=== PATIENT | female | born 1935 | race Two or more races ===

== ENCOUNTER 2017-07-15 09:06 | Emergency (ER) | payer OTHER ==
[~2017-07-15] VITALS: Ht 157.5 cm; Wt 63.5 kg
[~2017-07-15 09:06] MED LIST: CATAFLAM50 MG PO; KETO10TA2 PO; MEDROL4 MG PO; NEURONTIN300 MG PO; ORPH100T PO
[2017-07-15] MEDS ORDERED: LOSARTAN POTASS25 MG (09:28)
[2017-07-15] MEDS ORDERED: NORVASC5 MG (09:28)
[2017-07-15] MEDS ORDERED: CETIRIZINE HCL10 MG (09:48)
[2017-07-15] MEDS ORDERED: LEVOCETIRIZINE D5 MG (09:48)
[2017-07-15] MEDS ORDERED: FAMOTIDINE20 MG (09:49)
[2017-07-15] MEDS ORDERED: LANSOPRAZOLE30 MG (09:49)
[2017-07-15] MEDS ORDERED: ATORVASTATIN CA20 MG (09:49)
[2017-07-15] MEDS ORDERED: NITROGLYCERIN0.4 MG (09:50)
[2017-07-15] MEDS ORDERED: HYDROCHLOROTH12.5 MG (09:50)
== END 2017-07-15 12:45 | disposition home or self-care (01) ==
LOC: ER 09:06
DX: G44.209 Tension-type headache, unspecified, not intractable (principal); G50.0 Trigeminal neuralgia

== ENCOUNTER 2019-07-15 14:05 | Emergency (ER) | payer OTHER ==
[~2019-07-15] VITALS: Ht 157.5 cm; Wt 59.0 kg
[~2019-07-15 14:05] MED LIST changes: +ATORVASTATIN CA20 MG; +CETIRIZINE HCL10 MG; +FAMOTIDINE20 MG; +HYDROCHLOROTH12.5 MG; +LANSOPRAZOLE30 MG; +LEVOCETIRIZINE D5 MG; +LOSARTAN POTASS25 MG; +NITROGLYCERIN0.4 MG; +NORVASC5 MG
[2019-07-15] MEDS ORDERED: PLAVIX75 MG (14:19)
[2019-07-15] MEDS ORDERED: NITROSTAT0.4 MG (14:19)
[2019-07-15] MEDS ORDERED: HYDRODIURIL12.5 MG (14:20)
[2019-07-15] MEDS ORDERED: COZAAR100 MG (14:20)
[2019-07-15] MEDS ORDERED: PROTONIX40 M1 (14:20)
[2019-07-15] MEDS ORDERED: SYNTHROID75 MCG (14:21)
[2019-07-15] MEDS ORDERED: NORVASC5 MG (14:21)
== END 2019-07-15 16:48 | disposition home or self-care (01) ==
LOC: ER 14:05
DX: R68.84 Jaw pain (principal)

== ENCOUNTER 2019-11-03 06:57 | Emergency (ER) | payer OTHER ==
[~2019-11-03] VITALS: Ht 157.5 cm; Wt 59.0 kg
[~2019-11-03 06:57] MED LIST changes: +COZAAR100 MG; +HYDRODIURIL12.5 MG; +NITROSTAT0.4 MG; +PLAVIX75 MG; +PROTONIX40 M1; +SYNTHROID75 MCG
[2019-11-03] MEDS ORDERED: LIPITOR20 MG (07:10)
[2019-11-03] MEDS ORDERED: MONTELUKAST SODI4 M1 (07:10)
== END 2019-11-03 14:53 | disposition home or self-care (01) ==
LOC: ER 06:57
DX: R10.817 Generalized abdominal tenderness (principal)

== ENCOUNTER 2019-11-07 07:09 | Emergency (ER) | payer OTHER ==
[~2019-11-07] VITALS: Ht 157.5 cm; Wt 59.0 kg
[~2019-11-07 07:09] MED LIST changes: +LIPITOR20 MG; +MONTELUKAST SODI4 M1
[2019-11-07] MEDS ORDERED: HORIZANT300 MG (07:17)
== END 2019-11-07 13:31 | disposition home or self-care (01) ==
LOC: ER 07:09
DX: G89.18 Other acute postprocedural pain (principal); R10.32 Left lower quadrant pain; N28.1 Cyst of kidney, acquired; S91.202A Unspecified open wound of left great toe with damage to nail, initial encounter; Z03.818 Encounter for observation for suspected exposure to other biological agents ruled out; W22.8XXA Striking against or struck by other objects, initial encounter; Y93.89 Activity, other specified; Y92.89 Other specified places as the place of occurrence of the external cause; Y99.8 Other external cause status

== ENCOUNTER 2019-12-30 09:13 | Emergency (ER) | payer OTHER ==
[~2019-12-30] VITALS: Ht 157.5 cm; Wt 54.4 kg
[~2019-12-30 09:13] MED LIST changes: +HORIZANT300 MG
== END 2019-12-30 13:47 | disposition home or self-care (01) ==
LOC: ER 09:13
DX: R10.31 Right lower quadrant pain (principal); Z03.818 Encounter for observation for suspected exposure to other biological agents ruled out

== ENCOUNTER 2020-01-04 06:47 | Emergency (ER) | payer OTHER ==
[~2020-01-04] VITALS: Ht 152.4 cm; Wt 54.4 kg
[2020-01-04] MEDS ORDERED: PROTONIX40 MG (06:55)
[2020-01-04] MEDS ORDERED: COZAAR50 MG (06:55)
[2020-01-04] MEDS ORDERED: LIPITOR40 M1 (06:55)
[2020-01-04] MEDS ORDERED: CARAFATE1 GM/10 ML PO (12:42)
[2020-01-04] MEDS ORDERED: PROTONIX40 MG PO (12:42)
== END 2020-01-04 12:50 | disposition home or self-care (01) ==
LOC: ER 06:47
DX: R10.13 Epigastric pain (principal); Z03.818 Encounter for observation for suspected exposure to other biological agents ruled out

== ENCOUNTER 2022-09-29 13:35 | Emergency (ER) | payer OTHER ==
[~2022-09-29] VITALS: Ht 160 cm; Wt 53.5 kg
[~2022-09-29 13:35] MED LIST changes: +CARAFATE1 GM/10 ML PO; +COZAAR50 MG; +LIPITOR40 M1; +PROTONIX40 MG; +PROTONIX40 MG PO
== END 2022-09-29 19:06 | disposition home or self-care (01) ==
LOC: ER 13:35
DX: M54.50 Low back pain, unspecified (principal); Z88.0 Allergy status to penicillin; E11.9 Type 2 diabetes mellitus without complications
CPT/HCPCS: 36415; 74176; 96372; 99284; J1885

== ENCOUNTER 2022-10-21 08:28 | Emergency (ER) | payer OTHER ==
[~2022-10-21] VITALS: Ht 157.5 cm; Wt 77.1 kg
[2022-10-21] MEDS ORDERED: DOLOGESIC 500-1 EACH PO (11:01)
[2022-10-21] MEDS ORDERED: ANUSOL-HC30 G2 TOP (11:01)
== END 2022-10-21 11:17 | disposition home or self-care (01) ==
LOC: ER 08:28
PROVIDERS: General Practice
DX: K64.9 Unspecified hemorrhoids (principal); K62.89 Other specified diseases of anus and rectum; I10 Essential (primary) hypertension; E11.9 Type 2 diabetes mellitus without complications; Z88.0 Allergy status to penicillin
CPT/HCPCS: 36415; 96372; 99282; J1885

== ENCOUNTER 2023-11-02 10:32 | Emergency (ER) | payer OTHER ==
[~2023-11-02] VITALS: Ht 157.5 cm; Wt 55.8 kg
[~2023-11-02 10:32] MED LIST changes: +ANUSOL-HC30 G2 TOP; +DOLOGESIC 500-1 EACH PO
[2023-11-02] MEDS ORDERED: DEXAMETHASONE SODIUM PHOSPHATE 4 MG/ML VIAL IV STA (11:17)
[2023-11-02] MEDS ORDERED: HYDROCORTISONE ACETATE 25 MG/SUPP.RECT SUPP.RECT RECTAL STA ×2 (11:17→11:20)
[2023-11-02] MEDS ORDERED: DEXAMETHASONE SODIUM PHOSPHATE 4 MG/ML VIAL ONE (11:24)
[2023-11-02 11:44] LABS: HEMATOCRIT 33.9 % (36.0-45.00); HEMOGLOBIN 11.4 g/dL (12.0-15.00); MEAN CELL VOLUME 88.6 fL (80.00-100.00); MEAN CORPUSCULAR HEMOGLOBIN 29.9 pg (27.00-32.0); MEAN CORPUSCULAR HGB CONC 33.8 g/dl (32.0-36.0); PLATELET COUNT 273 K/uL (150-450); RED BLOOD COUNT 3.82 M/uL (4.00-6.00); RED CELL DISTRIBUTION WIDTH 14.9 % (11.5-14.5)
[2023-11-02 13:48] LABS: CALCIUM 9.8 mg/dL (8.5-10.1); CREATININE SERUM 1.09 mg/dL (0.55-1.02); GFR 47.59; POTASSIUM 4.38 mEq/L (3.5-5.1)
== END 2023-11-02 15:58 | disposition home or self-care (01) ==
LOC: ER 10:32
PROVIDERS: General Practice
DX: R10.13 Epigastric pain (principal); Z88.0 Allergy status to penicillin; I10 Essential (primary) hypertension; J44.89 Other specified chronic obstructive pulmonary disease; J45.998 Other asthma; E11.9 Type 2 diabetes mellitus without complications; I25.118 Atherosclerotic heart disease of native coronary artery with other forms of angina pectoris; B86 Scabies; K64.8 Other hemorrhoids
CPT/HCPCS: 36415; 96365; 99282; J1100

== ENCOUNTER 2024-03-01 07:37 | Emergency (ER) | payer OTHER ==
[~2024-03-01] VITALS: Ht 157.5 cm; Wt 53.5 kg
[2024-03-01] MEDS ORDERED: BARIUM SULFATE 450 ML ORAL.SUSP PO ONE (09:03)
[2024-03-01 10:04] LABS: HEMATOCRIT 29.7 % (36.0-45.00); HEMOGLOBIN 9.8 g/dL (12.0-15.00); MEAN CELL VOLUME 91.4 fL (80.00-100.00); MEAN CORPUSCULAR HEMOGLOBIN 30.1 pg (27.00-32.0); PLATELET COUNT 286 K/uL (150-450); RED BLOOD COUNT 3.25 M/uL (4.00-6.00)
[2024-03-01 10:10] LABS: RED CELL DISTRIBUTION WIDTH 18.5 % (11.5-14.5)
[2024-03-01 11:01] LABS: PH,URINE 6.5 (5.0-8.0); URINE APPEARANCE Clear; URINE BILIRRUBIN Negative (NEGATIVE); URINE BLOOD Negative; URINE COLOR Yellow; URINE KETONE Negative (NEGATIVE); URINE LEUKOCYTE Negative; URINE NITRATE Negative; URINE PROTEIN 30 (NEGATIVE); URINE UROBILINOGEN 0.2 E.U./dl
[2024-03-01 11:06] LABS: URINE BACTERIA 96.6 uL (0.0-1933); URINE EPITHELIAL CELLS 27.5 uL (0.0-38.8); URINE RBC 5.1 uL (0.0-20.8); URINE WBC 15.6 uL (0.0-23.2)
[2024-03-01 11:17] LABS: URINE CAST 0.29 uL (0.0-1.40); URINE GLUCOSE >=1000 MG/DL (NEGATIVE)
== END 2024-03-01 15:08 | disposition home or self-care (01) ==
LOC: ER 07:37
PROVIDERS: Emergency Medicine
DX: R10.9 Unspecified abdominal pain (principal); I49.8 Other specified cardiac arrhythmias; J45.909 Unspecified asthma, uncomplicated; E78.00 Pure hypercholesterolemia, unspecified; I10 Essential (primary) hypertension; E11.9 Type 2 diabetes mellitus without complications; Z79.84 Long term (current) use of oral hypoglycemic drugs; K59.00 Constipation, unspecified
CPT/HCPCS: 36415; 74177; 99284; Q9965

== ENCOUNTER → 2024-03-26 | Emergency (ER) | payer OTHER ==
[~2024-03-26] VITALS: Ht 134.6 cm; Wt 49.0 kg
[~2024-03-26] MED LIST changes: +0.9 % SODIUM CHLORIDE 1,000 ML IV ONE; +DICYCLOMINE HCL 20 MG TABLET PO ONE; +FAMOtidine 10 MG/ML (4ML VIAL) IV ONE; +KETOROLAC TROMETHAMINE 30 MG VIAL IU ONE
== END | disposition left against medical advice (07) ==
LOC: ER 06:54
DX: R10.9 Unspecified abdominal pain (principal)

== ENCOUNTER 2024-04-08 05:40 | Emergency (ER) | payer OTHER ==
[~2024-04-08] VITALS: Ht 157.5 cm; Wt 53.5 kg
[~2024-04-08 05:40] MED LIST changes: -0.9 % SODIUM CHLORIDE 1,000 ML IV ONE; -DICYCLOMINE HCL 20 MG TABLET PO ONE; -FAMOtidine 10 MG/ML (4ML VIAL) IV ONE; -KETOROLAC TROMETHAMINE 30 MG VIAL IU ONE
[2024-04-08] MEDS ORDERED: MEPERIDINE HCL/PF 50 MG/ML VIAL IM STA (06:39)
[2024-04-08] MEDS ORDERED: 0.9 % SODIUM CHLORIDE 1,000 ML IV ONE (06:45)
[2024-04-08 07:58] LABS: MEAN CELL VOLUME 83.8 fL (80.00-100.00); MEAN CORPUSCULAR HGB CONC 32.9 g/dl (32.0-36.0); PLATELET COUNT 286 K/uL (150-450); RED BLOOD COUNT 3.22 M/uL (4.00-6.00); RED CELL DISTRIBUTION WIDTH 17.3 % (11.5-14.5)
[2024-04-08 08:00] LABS: HEMOGLOBIN 8.9 g/dL (12.0-15.00); MEAN CORPUSCULAR HEMOGLOBIN 27.6 pg (27.00-32.0)
[2024-04-08 10:32] LABS: ALBUMIN 3.2 gm/dL (3.4-5.0); BILIRUBIN TOTAL 0.48 mg/dL (0.3-1.2); BILIRUBIN,CONJUGATED 0.16 mg/dL (0.0-0.2); BILIRUBIN,UNCONJUGATED 0.32 mg/dL (0.0-0.6); CALCIUM 8.9 mg/dL (8.5-10.1); CREATININE SERUM 0.92 mg/dL (0.55-1.02); GFR 57.74; GLOBULINA 3.2 G/DL (2.4-3.5); POTASSIUM 3.8 mEq/L (3.5-5.1); TOTAL PROTEIN 6.4 gm/dL (6.4-8.2)
[2024-04-08 11:25] LABS: URINE APPEARANCE Cloudy; URINE BILIRRUBIN Negative (NEGATIVE); URINE COLOR Yellow; URINE KETONE Negative (NEGATIVE); URINE LEUKOCYTE Moderate; URINE NITRATE Negative; URINE PROTEIN Trace (NEGATIVE); URINE UROBILINOGEN 0.2 E.U./dl
[2024-04-08 11:30] LABS: URINE BACTERIA 3884.8 uL (0.0-1933); URINE CAST 1.47 uL (0.0-1.40); URINE EPITHELIAL CELLS 62.3 uL (0.0-38.8); URINE WBC 186.9 uL (0.0-23.2)
[2024-04-08 12:49] LABS: URINE GLUCOSE >=1000 MG/DL (NEGATIVE); URINE RBC 1.3 uL (0.0-20.8)
[2024-04-08 12:51] LABS: URINE BLOOD TRACES; URINE CRYSTALS FEW /HPF
== END 2024-04-08 17:44 | disposition home or self-care (01) ==
LOC: ER 05:40
PROVIDERS: General Practice
DX: N39.0 Urinary tract infection, site not specified (principal)
CPT/HCPCS: 36415; 96365; 96366; 96372; 99282; J3490; J7030

== ENCOUNTER 2024-10-24 06:42 | Emergency (ER) | payer OTHER ==
[~2024-10-24] VITALS: Ht 157.5 cm; Wt 53.5 kg
[2024-10-24] MEDS ORDERED: 0.9 % SODIUM CHLORIDE 1,000 ML IV STA (07:19)
[2024-10-24] MEDS ORDERED: KETOROLAC TROMETHAMINE 30 MG VIAL IV STA (07:20)
[2024-10-24] MEDS ORDERED: MORPHINE SULFATE 4 MG/ML VIAL IV STA (07:20)
[2024-10-24 08:04] LABS: BASO % 0.7 % (0.1-1.2); EOS # 0.30 (0.04-0.54); EOS % 3.9 % (0.7-7.0); LYMPH # 1.47 (1.18-3.74); LYMPH % 19.1 % (19.3-53.1); MEAN PLATELET VOLUME 9.10 fl (9.4-12.4); MONO # 0.68 (0.24-0.82); MONO % 8.9 % (4.7-12.5); NEUT # 5.16 (1.56-6.13); NEUT % 67.1 % (34.0-71.1); RED CELL DISTRIBUTION WIDTH 13.2 % (11.6-14.4)
[2024-10-24 08:34] LABS: ALT/SGPT 23.0 U/L (12-78); AST/SGOT 18.0 U/L (15-37); BILIRUBIN TOTAL 1.04 mg/dL (0.3-1.2); BUN CREA RATIO 35.0 (7.0-25.0); CREATININE SERUM 0.99 mg/dL (0.55-1.02); GFR 53.06; GLOBULINA 3.4 G/DL (2.4-3.5); GLUCOSE FASTING 116.0 mg/dL (65-100); OSMOLALITY SERUM 290.0 MOSM/KG (275-295)
[2024-10-24 11:58] LABS: INR 1.10
== END 2024-10-24 17:39 | disposition home or self-care (01) ==
LOC: ER 06:42
PROVIDERS: General Practice
DX: R10.30 Lower abdominal pain, unspecified (principal); R10.9 Unspecified abdominal pain
CPT/HCPCS: 36415; 74176; 96365; 96366; 99284; J1885; J2270; J7030

== ENCOUNTER 2024-11-03 08:06 | Outpatient (CLI) | payer OTHER | END 2024-11-03 08:28 | disposition home or self-care (01) | LOC: TOM 08:06 | DX: R93.3 Abnormal findings on diagnostic imaging of other parts of digestive tract (principal) ==